=== PATIENT | male | born 2000 | race Asian ===

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

== ENCOUNTER 2019-01-20 15:35 | Emergency (ER) | payer OTHER ==
--- NOTE | 2019-01-20 15:48 | UC ---
Throat Pain/Nasal Jordan HPI - HPI Summary HPI Summary: 18 y/o male presents to the urgent care c/o sore throat for a week. Symptoms worsen yesterday w/ B/L eye redness RT >LF. This morning he woke up w/ RT eye yellowish crusting and closed. Pt is not wearing his contacts. Symptoms started w/ nasal congestion which now turned w/ yellowish nasal drainage. Pain w/ swallowing is 5/10 and has not taken anything to alleviate symptoms. Pt denies fever, SOB, chest pain, ORTIZ, dizziness, visual disturbances, abdominal pain, N/V/ D. - History of Current Complaint Stated Complaint: sore THROAT, AND EYE IRRITATION Time Seen by Provider: 01/20/19 15:47 Hx Obtained From: Patient Onset/Duration: Gradual Onset, Lasting Weeks - 1 week, Still Present, Worse Since - yesterday w/ RT eye red and yellowish drainage Severity: Moderate Pain Intensity: 5 Pain Scale Used: 0-10 Numeric Cough: None Associated Signs & Symptoms: Positive: Dysphagia, Sinus Discomfort, Nasal Discharge - yellowish - Epiglottits Risk Factors Epiglottis Risk Factors: Negative - Allergies/Home Medications Allergies/Adverse Reactions: Allergies Allergy/AdvReac Type Severity Reaction Status Date / Time No Known Allergies Allergy Verified 09/18/18 14:20 Home Medications: Home Medications Dextromethorphan Hb/Doxylamine [Night Time Cough Liquid] 01/20/19 [History] PMH/Surg Hx/FS Hx/Imm Hx Previously Healthy: Yes - Pt denies PMHX - Surgical History Surgical History: None - Family History Known Family History: Positive: Diabetes, Other - dyslipidemia Family History: Dyslipidemia - Social History Occupation: Student Lives: Dormitory/Roommates Alcohol Use: None Substance Use Type: None Smoking Status (MU): Never Smoked Tobacco - Immunization History Vaccination Up to Date: Yes Review of Systems All Other Systems Reviewed And Are Negative: Yes Constitutional: Positive: Negative Skin: Positive: Negative Eyes: Positive: Drainage - yellowish crusting, Eye Redness - B/L eye RT>LF ENT: Positive: Sore Throat, Nasal Discharge - yellowish, Sinus Congestion, Other - PND Respiratory: Positive: Negative Cardiovascular: Positive: Negative Gastrointestinal: Positive: Negative Genitourinary: Positive: Negative Motor: Positive: Negative Neurovascular: Positive: Negative Musculoskeletal: Positive: Negative Neurological: Positive: Negative Psychological: Positive: Negative Is Patient Immunocompromised?: No Physical Exam - Summary Physical Exam Summary: Vital Signs Reviewed: Yes General: Well appearing, well nourished adolescent male in no apparent pain distress Eyes: Positive: B/L Conjunctiva Inflamed, RT>LF - Visual acuity: WNL,Visual smith: full to confrontation. PERRLA, EOMI intact w/out limitation or complaint of pain. RT eyelashes w/ yellowish crusting,and yellowish drainage observed. No ciliary flush. No chemosis, No photophobia. Normal fundoscopic exam; no proptosis, exophthalmos, nystagmus. ENT: Positive: Normal ENT inspection, Hearing grossly normal, Pharynx normal, Nasal congestion, Nasal drainage - clear, TMs normal - B/L external ear canal clear , TM's WNL. Negative: Tonsillar swelling, Tonsillar exudate Neck: Positive: Supple, Nontender, No Lymphadenopathy Respiratory: Positive: Chest nontender, Lungs clear, Normal breath sounds, No respiratory distress Cardiovascular: Positive: RRR, No Murmur, Pulses Normal, Brisk Capillary Refill Abdomen Description: Positive: Nontender, No Organomegaly, Soft. Negative: CVA Tenderness (R), CVA Tenderness (L) Bowel Sounds: Positive: Present Musculoskeletal: Positive: Strength Intact, ROM Intact, No Edema Neurological Exam: Normal Psychological Exam: Normal Skin Exam: Normal Triage Information Reviewed: Yes Throat Pain/Nasal Course/Dx - Course Course Of Treatment: 18 y/o male presents to the urgent care c/o sore throat for a week. Symptoms worsen yesterday w/ B/L eye redness RT >LF. This morning he woke up w/ RT eye yellowish crusting and closed. Pt is not wearing his contacts. Symptoms started w/ nasal congestion which now turned w/ yellowish nasal drainage. Pain w/ swallowing is 5/10 and has not taken anything to alleviate symptoms. Pt denies fever, SOB, chest pain, ORTIZ, dizziness, visual disturbances, abdominal pain, N/V/D. Hx obtained. Pt w/ pharyngitis and b/L bacterial conjunctivitis on examination. Rapid strep: negative. Pt Rx Ciprofloxacin ophthalmic drops, advised to encourage hand washing to avoid spread and advised if symptoms do not improve or worsen to f/u with Marketing Strategy Lead Dr Thomas Hernandez in 2-3 days. Also advised to take Ibuprofen PO 600mg PO to alleviate sore throat, to increase fluid intake, rest and avoid strenuous exercise. D/C instructions explained. Pt understood and agreed w/ plan of care. - Differential Dx/Diagnosis Differential Diagnosis/HQI/PQRI: Laryngitis, Otitis Media, Pharyngitis, Sinusitis, Tonsillitis, URI, Other - conjunctivitis Provider Diagnosis: Pharyngitis, Acute bacterial conjunctivitis of both eyes Discharge - Sign-Out/Discharge Documenting (check all that apply): Patient Departure - D/C home All imaging exams completed and their final reports reviewed: No Studies - Discharge Plan Condition: Stable Disposition: HOME Prescriptions: Ciprofloxacin 0.3% OPTH.MELODY* [Cipro 0.3% Opth*] 2 drop BOTH EYES Q4H #1 btl Patient Education Materials: Pharyngitis (ED), Conjunctivitis (ED) Forms: *School Release Referrals: [facility] [Outside] - If Needed Additional Instructions: 1-Please apply ophthalmic drops as instructed and finish the full course of treatment to avoid recurrent infection. Please encourage hand washing to avoid spread. 2- Take Ibuprofen PO q6-8hrs prn after meals to alleviate sore throat . Increase fluid intake, eat well and rest 3-If you do not improve or if symptoms worsen please f/u with PCP in 2-3 days for further evaluation and treatment - Billing Disposition and Condition Condition: STABLE Disposition: Home
[2019-01-20 15:52] VITALS: BP 100/53
== END 2019-01-20 16:30 | disposition home or self-care (01) ==
LOC: UCEAST 15:35
DX: J02.9 Acute pharyngitis, unspecified (principal); H10.33 Unspecified acute conjunctivitis, bilateral
CPT/HCPCS: 87651; 99212; G0463